=== PATIENT | male | born 1960 | race Caucasian/White ===

== ENCOUNTER 2017-12-29 21:18 | Emergency (ER) | payer OTHER ==
[~2017-12-29] VITALS: Ht 172.7 cm; Wt 86.5 kg
[2017-12-29 21:21] VITALS: BP 133/86
== END 2017-12-29 22:30 | disposition home or self-care (01) ==
LOC: ER 21:19
DX: S61.211A Laceration without foreign body of left index finger without damage to nail, initial encounter (principal); G89.29 Other chronic pain; M54.9 Dorsalgia, unspecified; W26.0XXA Contact with knife, initial encounter; Y93.G1 Activity, food preparation and clean up; Y92.89 Other specified places as the place of occurrence of the external cause; Y99.8 Other external cause status
CPT/HCPCS: 99282